=== PATIENT | male | born 1980 | race Hispanic/Latino ===

== ENCOUNTER 2017-06-19 18:19 | Emergency (ER) | payer SELFPAY ==
[~2017-06-19] VITALS: Ht 175.3 cm; Wt 135.2 kg
[~2017-06-19 18:19] MED LIST: GLIPIZIDE ER5 MG PO; METFORMIN HCL500 MG PO
[2017-06-19] MEDS ORDERED: ASPIRIN 81 MG CHEW TAB PO ONE (18:45)
[2017-06-19 18:52] LABS: BASOPHILS # (AUTO) 0.1 (0.0-0.1); BASOPHILS % 0.8 % (0.0-1.0); EOSINOPHILS # (AUTO) 0.3 (0.0-0.4); EOSINOPHILS % 4.2 % (0.0-6.0); HEMATOCRIT 43.4 % (38.2-49.6); LYMPHOCYTES # (AUTO) 2.6 (1.0-3.2); LYMPHOCYTES % 32.7 % (18.0-39.1); MEAN CORPUSCULAR HEMOGLOBIN 29.9 pg (28-32); MEAN CORPUSCULAR HGB CONC 34.6 g/dL (31-35); MEAN CORPUSCULAR VOLUME 86.6 fL (81-99); MONOCYTES # (AUTO) 0.4 (0.2-0.8); MONOCYTES % 5.3 % (4.4-11.3); NEUTROPHILS # (AUTO) 4.5 (2.1-6.9); NEUTROPHILS % 56.5 % (38.7-80.0); PLATELET COUNT 286 x10e3/uL (140-360); RED BLOOD COUNT 5.01 x10e6/uL (4.3-5.7); RED CELL DISTRIBUTION WIDTH 12.5 % (11.7-14.4)
[2017-06-19 18:58] LABS: AMPHETAMINES SCREEN,URINE NEGATIVE (NEGATIVE); BENZODIAZEPINES SCREEN,URINE NEGATIVE (NEGATIVE); BILIRUBIN,URINE NEGATIVE (NEGATIVE); CLARITY,URINE SL CLOUDY (CLEAR); COLOR,URINE YELLOW (YELLOW); KETONES,URINE NEGATIVE (NEGATIVE); LEUKOCYTE ESTERASE ,URINE NEGATIVE (NEGATIVE); NITRITE,URINE NEGATIVE (NEGATIVE); PHENCYCLIDINE SCREEN,URINE NEGATIVE (NEGATIVE); PROTEIN,URINE DIPSTICK NEGATIVE (NEGATIVE); URINE UROBILINOGEN 0.2 mg/dL (0.2 - 1)
[2017-06-19 18:58] LABS: INR 1.02; PROTHROMBIN TIME 12.6 seconds (11.9-14.5)
[2017-06-19 18:59] LABS: PARTIAL THROMBOPLASTIN TIME 29.4 seconds (23.8-35.5)
[2017-06-19 19:10] LABS: ALANINE AMINOTRANSFERASE 44 IU/L (0-55); ALBUMIN 4.5 g/dL (3.5-5.0); ALBUMIN/GLOBULIN RATIO 1.3 (0.8-2.0); ALKALINE PHOSPHATASE 88 IU/L (40-150); ANION GAP 14.9 mmol/L (8-16); BLOOD UREA NITROGEN 16 mg/dL (7-26); BUN/CREATININE RATIO 18 (6-25); CALCIUM 9.6 mg/dL (8.4-10.2); CARBON DIOXIDE 24 mmol/L (22-29); CHLORIDE 102 mmol/L (98-107); CREATINE KINASE 77 IU/L (30-200); CREATININE, SERUM 0.87 mg/dL (0.72-1.25); EST GLOMERULAR FILTRATION RATE > 60 ML/MIN (60-); GLUCOSE 269 mg/dL (74-118); MAGNESIUM 1.9 MG/DL (1.3-2.1); POTASSIUM 3.9 mmol/L (3.5-5.1); SODIUM 137 mmol/L (136-145)
[2017-06-19 19:19] LABS: MUCUS,URINE FEW (RARE); RBC,URINE 0-5 /HPF (0-5); WBC,URINE (MAN) 0-5 /HPF (0-5)
--- NOTE | 2017-06-19 20:36 | Diagnostic Imaging Report ---
EXAMINATION: CHEST SINGLE (NOT PORTABLE) INDICATION: \S\chest pain \S\[id number] \S\2014 COMPARISON: None FINDINGS: AP view TUBES and LINES: None. LUNGS: Lungs are well inflated. Lungs are clear. There is no evidence of pneumonia or pulmonary edema. PLEURA: No pleural effusion or pneumothorax. HEART AND MEDIASTINUM: The cardiomediastinal silhouette is unremarkable.. BONES AND SOFT TISSUES: No acute osseous lesion. Soft tissues are unremarkable. UPPER ABDOMEN: No free air under the diaphragm. IMPRESSION: No acute thoracic abnormality. Signed by: Dr. Catia Lentz M.D. on 06/19/2017 8:32 PM
[2017-06-19 21:22] VITALS: BP 127/75
== END 2017-06-19 21:32 | disposition home or self-care (01) ==
LOC: ER 18:19
DX: R07.89 Other chest pain (principal); E11.65 Type 2 diabetes mellitus with hyperglycemia; I10 Essential (primary) hypertension
CPT/HCPCS: 36415; 71045; 80053; 80307; 81001; 82550; 82553; 83735; 84484; 85025; 85610; 85730; 93005; 99283

== ENCOUNTER 2017-08-15 19:52 | Emergency (ER) | payer SELFPAY ==
[~2017-08-15] VITALS: Ht 175.3 cm; Wt 135.2 kg
--- OUTSIDE RECORDS SUMMARY | 2017-08-15 19:55 | XMS REPORT ---
Author Author [facility] Address Unknown Phone Unavailable Care Team Providers Care Funder Name Role Phone AMBER QUIROZ Unavailable Unavailable Problems This patient has no known problems. Allergies, Adverse Reactions, Alerts This patient has no known allergies or adverse reactions. Medications This patient has no known medications. Results Test Description Test Time Test Comments Text Results Atomic Results Result Comments CHEST SINGLE (NOT PORTABLE) [place] [address] Patient Name: NATAN DEL REAL MR #: [id number] : 1980 Age/Sex: 36/M Req #: [id number] Adm Physician: Ordered by: MAYE PITTS TELEMARKETING SUPERVISOR Report #: [id number] Location: ER Room/Bed: Procedure: [id number] DX/CHEST SINGLE (NOT PORTABLE) Exam Date: 06/19/17 Exam Time: 2014 REPORT STATUS: Signed EXAMINATION : CHEST SINGLE (NOT PORTABLE) INDICATION: COMPARISON: None FINDINGS: AP view TUBES and LINES: None. LUNGS: Lungs are well inflated. Lungs are clear. There is no evidence of pneumonia or pulmonary edema. PLEURA: No pleural effusion or pneumothorax. HEART AND MEDIASTINUM: The cardiomediastinal silhouette is unremarkable.. BONES AND SOFT TISSUES: No acute osseous lesion. Soft tissues are unremarkable. UPPER ABDOMEN: No free air under the diaphragm. IMPRESSION: No acute thoracic abnormality. Signed by: Dr. Kael Lucero M.D. on 06/19/2017 8:32 PM Dictated By: KAEL LUCERO MD 31 Transcribed By: PADMA on 06/19/172031 COPY TO: MAYE PITTS NP
--- OUTSIDE RECORDS SUMMARY | 2017-08-15 19:55 | XMS REPORT | Continuity of Care Document ---
Author Author [facility] Organization [facility] Address [address] [place] [address] Phone Unavailable Care Team Providers Care Estimator Name Role Phone NONSTAFF PCP Unavailable Insurance Providers Guarantor Moises Del Real Address [address] [place] [id number] Email [email or web address] [facility] Policy Number [id number] Subscriber's Name Moises Del Real Relationship 18 Self / Same As Patient Group Number [id number] Group Name [employer] Effective Date 15 Advance Directives Directive Response Recorded Date/Time Does the patient have an advance directive? No 04/20/15 10:47am If yes, is advance directive on file with [facility]? No 04/20/15 10:47am If not on file with [facility] will patient provide a copy? No 06/19/17 6:56pm Do you have a Directive to Physician? No 06/19/17 6:56pm Do you have a Medical Power of Loan Examiner? No 06/19/17 6:56pm Do you have an out of hospital Do Not Resuscitate Order? No 06/19/17 6:56pm Do you have any special needs we should be aware of? No 06/19/17 6:56pm Do you have a support person here with you today? Yes 06/19/17 6:56pm Did patient receive Notice of Privacy Practices? Yes 06/19/17 6:56pm Did patient receive patient rights and responsibilities? Yes 06/19/17 6:56pm Problems No problem information available. Medications Current Home Medications Medication Dose Units Route Directions Days Qty Instructions Start Date Glipizide (Glipizide Er) 5 Mg Tab.er.24 5 Mg Oral Twice A Day Metformin Hcl 500 Mg Tablet 1,000 Mg Oral Twice A Day 60 Tab Social History Smoking Status Start Date Stop Date Former smoker Hospital Discharge Instructions No hospital discharge instruction information available. Plan of Care Discharge Date 06/19/17 9:32pm Disposition HOME, SELF-CARE Condition at Discharge Stable Instructions/Education Provided Angina Chest Pain - Noncardiac Chest Pain - Chest Wall Obesity and Weight Control Forms Provided Work/School Excuse Prescriptions See Medication Section Referrals JEFFY AQUINO MD Order Date: Call for an appointment Address: [address] [place] [id number] Additional Instructions/Education DC Instructions: Follow up with your PCP next business day to schedule your follow-up appointment. Return to the ER for any shortness of breath, chest pain, abdominal pain,increased pain to injured extremity or any new concerns. Functional Status No functional status information available. Allergies, Adverse Reactions, Alerts No known allergies. Immunizations No immunization information available. Vital Signs Acute Vital Signs Vital Response Date/Time Temperature (Fahrenheit) 98.0 degrees F (97.6 - 99.5) 06/19/2017 9:22pm Pulse Pulse Rate (adult) 80 bpm (60 - 90) 06/19/2017 9:22pm Respiratory Rate 18 bpm (12 - 24) 06/19/2017 9:22pm Blood Pressure 127/75 mm Hg 06/19/2017 9:22pm Height 5 ft 9 in 06/19/2017 6:31pm Weight 298 lb 06/19/2017 6:31pm Body Mass Index 44.0 kg/m^2 06/19/2017 6:31pm Results Laboratory Results Test Name Result Units Flags Reference Collection Date/Time Result Date/ Time Comments White Blood Count 7.87 x10e3/uL 4.8-10.8 06/19/2017 6:36pm 06/19/2017 6 :53pm Red Blood Count 5.01 x10e6/uL 4.3-5.7 06/19/2017 6:36pm 06/19/2017 6: 53pm Hemoglobin 15.0 g/dL 14.0-18.0 06/19/2017 6:36pm 06/19/2017 6:53pm Hematocrit 43.4 % 38.2-49.6 06/19/2017 6:36pm 06/19/2017 6:53pm Mean Corpuscular Volume 86.6 fL 81-99 06/19/2017 6:36pm 06/19/2017 6: 53pm Mean Corpuscular Hemoglobin 29.9 pg 28-32 06/19/2017 6:36pm 06/19/2017 6:53pm Mean Corpuscular Hemoglobin Concent 34.6 g/dL 31-35 06/19/2017 6:36pm 06/19/2017 6:53pm Red Cell Distribution Width 12.5 % 11.7-14.4 06/19/2017 6:36pm 2017 6:53pm Platelet Count 286 x10e3/uL 140-360 06/19/2017 6:36pm 06/19/2017 6: 53pm Neutrophils (%) (Auto) 56.5 % 38.7-80.0 06/19/2017 6:36pm 06/19/2017 6: 53pm Lymphocytes (%) (Auto) 32.7 % 18.0-39.1 06/19/2017 6:36pm 06/19/2017 6: 53pm Monocytes (%) (Auto) 5.3 % 4.4-11.3 06/19/2017 6:36pm 06/19/2017 6: 53pm Eosinophils (%) (Auto) 4.2 % 0.0-6.0 06/19/2017 6:36pm 06/19/2017 6: 53pm Basophils (%) (Auto) 0.8 % 0.0-1.0 06/19/2017 6:36pm 06/19/2017 6:53pm IM GRANULOCYTES % 0.5 % 0.0-1.0 06/19/2017 6:36pm 06/19/2017 6:53pm Neutrophils # (Auto) 4.5 2.1-6.9 06/19/2017 6:36pm 06/19/2017 6:53pm Lymphocytes # (Auto) 2.6 1.0-3.2 06/19/2017 6:36pm 06/19/2017 6:53pm Monocytes # (Auto) 0.4 0.2-0.8 06/19/2017 6:36pm 06/19/2017 6:53pm Eosinophils # (Auto) 0.3 0.0-0.4 06/19/2017 6:36pm 06/19/2017 6:53pm Basophils # (Auto) 0.1 0.0-0.1 06/19/2017 6:36pm 06/19/2017 6:53pm Absolute Immature Granulocyte (auto 0.04 x10e3/uL 0-0.1 06/19/2017 6: 36pm 06/19/2017 6:53pm Prothrombin Time 12.6 seconds 11.9-14.5 06/19/2017 6:36pm 06/19/2017 7: 00pm Prothromb Time International Ratio 1.02 06/19/2017 6:36pm 2017 7:00pm Oral Anticoagulant Therapy INR Values: 1. Low Intensity Therapy 1.5 - 2.0 2. Moderate Intensity Therapy 2.0 - 3.0 3. High Intensity Therapy(1) 2.5 - 3.5 4. High Intensity Therapy(2) 3.0 - 4.0 5. Panic Value INR > 5.0 Activated Partial Thromboplast Time 29.4 seconds 23.8-35.5 06/19/2017 6: 36pm 06/19/2017 7:00pm Urine Color YELLOW YELLOW 06/19/2017 6:37pm 06/19/2017 6:58pm Urine Clarity SL CLOUDY H CLEAR 06/19/2017 6:37pm 06/19/2017 6:58pm Urine Specific [place] 1.025 1.010-1.025 06/19/2017 6:37pm 2017 6:58pm Urine pH 5 5 - 7 06/19/2017 6:37pm 06/19/2017 6:58pm Urine Leukocyte Esterase NEGATIVE NEGATIVE 06/19/2017 6:37pm 2017 6:58pm Urine Nitrite NEGATIVE NEGATIVE 06/19/2017 6:37pm 06/19/2017 6:58pm Urine Protein NEGATIVE NEGATIVE 06/19/2017 6:37pm 06/19/2017 6:58pm Urine Glucose (UA) 3+ H NEGATIVE 06/19/2017 6:37pm 06/19/2017 6:58pm Urine Ketones NEGATIVE NEGATIVE 06/19/2017 6:37pm 06/19/2017 6:58pm Urine Opiates Screen NEGATIVE NEGATIVE 06/19/2017 6:37pm 06/19/2017 6 :58pm Urine Barbiturates Screen NEGATIVE NEGATIVE 06/19/2017 6:37pm 2017 6:58pm Urine Phencyclidine Screen NEGATIVE NEGATIVE 06/19/2017 6:37pm 2017 6:58pm Urine Amphetamines Screen NEGATIVE NEGATIVE 06/19/2017 6:37pm 2017 6:58pm Urine Methamphetamines Screen NEGATIVE NEGATIVE 06/19/2017 6:37pm 11/2017 6:58pm Urine Benzodiazepines Screen NEGATIVE NEGATIVE 06/19/2017 6:37pm 11/2017 6:58pm Urine Cocaine Screen NEGATIVE NEGATIVE 06/19/2017 6:37pm 06/19/2017 6 :58pm Urine Cannabinoids Screen NEGATIVE NEGATIVE 06/19/2017 6:37pm 2017 6:58pm THESE RESULTS ARE FOR MEDICAL TREATMENT ONLY *THIS REPORT CONTAINS UNCONFIRMED SCREENING RESULTS* POSITIVE RESULTS WILL BE CONFIRMED BY REFERENCE LAB UPON REQUEST CUT-OFF DRUG CLASS CONCENTRATION ng/mL Amphetamines 1000 Methamphetamines 1000 Cocaine 300 Opiate 300 Phencyclidine 25 Cannabinoid 50 Barbiturates 300 Benzodiazepine 300 Methadone 300 Urine Methadone Screen NEGATIVE NEGATIVE 06/19/2017 6:37pm 2017 6:58pm THESE RESULTS ARE FOR MEDICAL TREATMENT ONLY *THIS REPORT CONTAINS UNCONFIRMED SCREENING RESULTS* POSITIVE RESULTS WILL BE CONFIRMED BY REFERENCE LAB UPON REQUEST CUT-OFF DRUG CLASS CONCENTRATION ng/mL Amphetamines 1000 Methamphetamines 1000 Cocaine Metabolite 300 Opiate 300 Phencyclidine 25 Cannabinoid 50 Barbiturates 300 Benzodiazepine 300 Methadone 300 Urine Urobilinogen 0.2 mg/dL 0.2 - 1 06/19/2017 6:37pm 06/19/2017 6: 58pm Urine Bilirubin NEGATIVE NEGATIVE 06/19/2017 6:37pm 06/19/2017 6: 58pm Urine Blood NEGATIVE NEGATIVE 06/19/2017 6:37pm 06/19/2017 6:58pm Urine WBC 0-5 /HPF 0-5 06/19/2017 6:37pm 06/19/2017 7:19pm Urine RBC 0-5 /HPF 0-5 06/19/2017 6:37pm 06/19/2017 7:19pm Urine Bacteria NONE /HPF NONE 06/19/2017 6:37pm 06/19/2017 7:19pm Urine Epithelial Cells NONE /LPF NONE 06/19/2017 6:37pm 06/19/2017 7: 19pm Urine Mucus FEW H RARE 06/19/2017 6:37pm 06/19/2017 7:19pm Sodium Level 137 mmol/L 136-145 06/19/2017 6:36pm 06/19/2017 7:10pm Potassium Level 3.9 mmol/L 3.5-5.1 06/19/2017 6:36pm 06/19/2017 7:10pm Chloride Level 102 mmol/L 98-107 06/19/2017 6:36pm 06/19/2017 7:10pm Carbon Dioxide Level 24 mmol/L 22-29 06/19/2017 6:36pm 06/19/2017 7: 10pm Anion Gap 14.9 mmol/L 8-16 06/19/2017 6:36pm 06/19/2017 7:10pm Blood Urea Nitrogen 16 mg/dL 7-26 06/19/2017 6:36pm 06/19/2017 7:10pm Creatinine 0.87 mg/dL 0.72-1.25 06/19/2017 6:36pm 06/19/2017 7:10pm BUN/Creatinine Ratio 18 6-25 06/19/2017 6:36pm 06/19/2017 7:10pm Estimat Glomerular Filtration Rate > 60 ML/MIN 60- 06/19/2017 6:36pm 7:10pm Ranges were taken from the National Kidney Disease Education Program and the National Kid[employer] Foundation literature. Reference ranges: 60 or greater: Normal 16-59 (for 3 consecutive months): Chronic kidney disease 15 or less: Kidney failure Glucose Level 269 mg/dL H 74-118 06/19/2017 6:36pm 06/19/2017 7:10pm Calcium Level 9.6 mg/dL 8.4-10.2 06/19/2017 6:36pm 06/19/2017 7:10pm Magnesium Level 1.9 MG/DL 1.3-2.1 06/19/2017 6:36pm 06/19/2017 7:10pm Total Bilirubin 0.7 mg/dL 0.2-1.2 06/19/2017 6:36pm 06/19/2017 7:10pm Aspartate Amino Transf (AST/SGOT) 18 IU/L 5-34 06/19/2017 6:36pm 2017 7:10pm Alanine Aminotransferase (ALT/SGPT) 44 IU/L 0-55 06/19/2017 6:36pm 11/2017 7:10pm Total Protein 7.9 g/dL 6.5-8.1 06/19/2017 6:36pm 06/19/2017 7:10pm Albumin 4.5 g/dL 3.5-5.0 06/19/2017 6:36pm 06/19/2017 7:10pm Globulin 3.4 g/dL 2.3-3.5 06/19/2017 6:36pm 06/19/2017 7:10pm Albumin/Globulin Ratio 1.3 0.8-2.0 06/19/2017 6:36pm 06/19/2017 7: 10pm Alkaline Phosphatase 88 IU/L 40-150 06/19/2017 6:36pm 06/19/2017 7: 10pm Creatine Kinase 77 IU/L 30-200 06/19/2017 6:36pm 06/19/2017 7:10pm Creatine Kinase MB 0.60 ng/mL 0-5.0 06/19/2017 6:36pm 06/19/2017 7: 18pm Troponin I < 0.001 ng/mL 0-0.300 06/19/2017 6:36pm 06/19/2017 7:18pm Procedures Procedure Status Date Provider(s) X-ray of chest, single view Active 06/19/17 MAYE PITTS HOSPITAL[facility] AMBASSADOR Encounters Encounter Location Arrival/Admit Date Discharge/Depart Date Attending Provider Departed Emergency Room [facility] 06/19/17 6:19pm 9:32pm AMBER QUIROZ MD
[2017-08-15] MEDS ORDERED: ASPIRIN 81 MG CHEW TAB PO ONE (20:30)
--- NOTE | 2017-08-15 20:46 | Diagnostic Imaging Report ---
EXAM: XR CHEST 2 VIEWS DATE: 08/15/2017 8:13 PM INDICATION: Chest pain COMPARISON: 06/19/2017 FINDINGS: Lines and Tubes: None Heart and Mediastinum: No acute findings. Lungs and Pleura: Minimal opacities in the lung bases statistically represent atelectasis, however, infectious process could have a similar appearance. Bones and Soft Tissues: No acute findings. IMPRESSION: 1. No acute cardiopulmonary findings. Signed by: Dr. Festus Schwartz MD on 08/15/2017 8:43 PM
[2017-08-15 22:39] LABS: BASOPHILS # (AUTO) 0.1 (0.0-0.1); BASOPHILS % 0.5 % (0.0-1.0); EOSINOPHILS # (AUTO) 0.5 (0.0-0.4); EOSINOPHILS % 5.7 % (0.0-6.0); HEMATOCRIT 43.7 % (38.2-49.6); LYMPHOCYTES # (AUTO) 2.4 (1.0-3.2); LYMPHOCYTES % 25.6 % (18.0-39.1); MEAN CORPUSCULAR HGB CONC 34.3 g/dL (31-35); MEAN CORPUSCULAR VOLUME 87.4 fL (81-99); MONOCYTES # (AUTO) 0.6 (0.2-0.8); MONOCYTES % 5.9 % (4.4-11.3); NEUTROPHILS # (AUTO) 5.8 (2.1-6.9); NEUTROPHILS % 61.4 % (38.7-80.0); PLATELET COUNT 267 x10e3/uL (140-360); RED CELL DISTRIBUTION WIDTH 12.7 % (11.7-14.4)
[2017-08-15 22:51] LABS: INR 0.93; PARTIAL THROMBOPLASTIN TIME 30.1 seconds (23.8-35.5); PROTHROMBIN TIME 11.7 seconds (11.9-14.5)
[2017-08-15 22:59] LABS: ALANINE AMINOTRANSFERASE 55 IU/L (0-55); ALBUMIN/GLOBULIN RATIO 1.1 (0.8-2.0); ALKALINE PHOSPHATASE 96 IU/L (40-150); ANION GAP 15.2 mmol/L (8-16); BLOOD UREA NITROGEN 18 mg/dL (7-26); BUN/CREATININE RATIO 18 (6-25); CALCIUM 10.1 mg/dL (8.4-10.2); CARBON DIOXIDE 23 mmol/L (22-29); CHLORIDE 104 mmol/L (98-107); CREATINE KINASE 95 IU/L (30-200); CREATININE, SERUM 1.01 mg/dL (0.72-1.25); EST GLOMERULAR FILTRATION RATE > 60 ML/MIN (60-); GLUCOSE 341 mg/dL (74-118); MAGNESIUM 1.9 MG/DL (1.3-2.1); POTASSIUM 4.2 mmol/L (3.5-5.1); SODIUM 138 mmol/L (136-145)
[2017-08-15] MEDS ORDERED: SODIUM CHLORIDE 0.9% 1000ML 1,000 ML IV STA (23:05)
[2017-08-15 23:08] LABS: AMPHETAMINES SCREEN,URINE NEGATIVE (NEGATIVE); BENZODIAZEPINES SCREEN,URINE NEGATIVE (NEGATIVE); PHENCYCLIDINE SCREEN,URINE NEGATIVE (NEGATIVE)
[2017-08-15 23:10] LABS: BILIRUBIN,URINE NEGATIVE (NEGATIVE); CLARITY,URINE CLEAR (CLEAR); COLOR,URINE YELLOW (YELLOW); LEUKOCYTE ESTERASE ,URINE NEGATIVE (NEGATIVE); NITRITE,URINE NEGATIVE (NEGATIVE); PROTEIN,URINE DIPSTICK NEGATIVE (NEGATIVE); URINE UROBILINOGEN 0.2 mg/dL (0.2 - 1)
[2017-08-15 23:11] LABS: KETONES,URINE TRACE (NEGATIVE)
[2017-08-15 23:19] LABS: THYROID STIMULATING HORMONE 1.024 uIU/mL (0.350-4.940)
[2017-08-15 23:19] LABS: EPITHELIAL CELLS,URINE FEW /LPF; RBC,URINE 0-5 /HPF (0-5); WBC,URINE (MAN) 0-5 /HPF (0-5)
[2017-08-16 00:45] VITALS: BP 132/65
== END 2017-08-16 01:19 | disposition home or self-care (01) ==
LOC: ER 19:52
DX: R07.89 Other chest pain (principal)
CPT/HCPCS: 36415; 71046; 80053; 80307; 81001; 82550; 82553; 83735; 84443; 84484; 85025; 85379; 85610; 85730; 93005; 99284; J7030

== ENCOUNTER 2023-11-17 21:18 | Emergency (ER) | payer SELFPAY ==
[~2023-11-17] VITALS: Ht 180.3 cm; Wt 97.1 kg
[2023-11-17 21:25] VITALS: TEMP 100.8
[2023-11-17] MEDS ORDERED: IOPAMIDOL 370 MG/ML 100 ML INFUS..BTL INJ ONE (21:54)
[2023-11-17 22:11] LABS: BASOPHILS % 0.4 % (0.0-1.0); EOSINOPHILS % 0.4 % (0.0-6.0); HEMOGLOBIN 13.4 g/dL (14.0-18.0); LYMPHOCYTES # (AUTO) 1.4 (1.0-3.2); LYMPHOCYTES % 13.4 % (18.0-39.1); MEAN CORPUSCULAR HEMOGLOBIN 30.1 pg (28-32); MEAN CORPUSCULAR HGB CONC 34.4 g/dL (31-35); MEAN CORPUSCULAR VOLUME 87.6 fL (81-99); MONOCYTES % 9.8 % (4.4-11.3); NEUTROPHILS # (AUTO) 7.7 (2.1-6.9); NEUTROPHILS % 75.4 % (38.7-80.0); PLATELET COUNT 305 x10e3/uL (140-360); RED BLOOD COUNT 4.45 x10e6/uL (4.3-5.7); RED CELL DISTRIBUTION WIDTH 11.8 % (11.7-14.4); WHITE BLOOD COUNT 10.21 x10e3/uL (4.8-10.8)
[2023-11-17] MEDS: SODIUM CHLORIDE 0.9% 1000ML 1,000 ML IV STA ×2 (22:13)
[2023-11-17] MEDS: IBUPROFEN 600 MG TAB PO STA (22:14)
[2023-11-17 22:15] LABS: ALBUMIN 3.7 g/dL (3.5-5.0); ALBUMIN/GLOBULIN RATIO 0.9 (0.8-2.0); ANION GAP 15.6 mmol/L (8-16); BILIRUBIN,TOTAL 1.3 mg/dL (0.2-1.2); CALCIUM 9.5 mg/dL (8.4-10.2); CREATININE, SERUM 1.06 mg/dL (0.72-1.25); POTASSIUM 3.6 mmol/L (3.5-5.1); TOTAL PROTEIN 7.6 g/dL (6.5-8.1)
[2023-11-17 22:38] LABS: BILIRUBIN,URINE NEGATIVE (NEGATIVE); CLARITY,URINE CLEAR (CLEAR); COLOR,URINE YELLOW (YELLOW); GLUCOSE, URINE >=1000 (NEGATIVE); KETONES,URINE NEGATIVE (NEGATIVE); LEUKOCYTE ESTERASE ,URINE NEGATIVE (NEGATIVE); NITRITE,URINE NEGATIVE (NEGATIVE); PH,URINE 6 (5 - 7); PROTEIN,URINE DIPSTICK TRACE (NEGATIVE)
[2023-11-17 22:57] LABS: BACTERIA,URINE FEW /HPF; EPITHELIAL CELLS,URINE FEW /LPF
[2023-11-17 23:00] VITALS: PULSE 76; RESP 24
[2023-11-17] MEDS ORDERED: AMOX TR-K CLV1 EAC2 PO (23:51)
[2023-11-18 00:18] VITALS: BP 123/75; PULSE 72; RESP 22; TEMP 98.7; O2SAT 97
== END 2023-11-18 00:18 | disposition home or self-care (01) ==
LOC: ER 21:32
DX: R50.9 Fever, unspecified (principal); J18.9 Pneumonia, unspecified organism; E11.65 Type 2 diabetes mellitus with hyperglycemia; R16.1 Splenomegaly, not elsewhere classified; F41.9 Anxiety disorder, unspecified; Z11.52 Encounter for screening for COVID-19
CPT/HCPCS: 36415; 71250; 74177; 80053; 81001; 82948; 83605; 85025; 87040; 99284; J2543; J7030; Q9967; U0002

== ENCOUNTER 2024-10-31 22:24 | Emergency (ER) | payer SELFPAY ==
[~2024-10-31] VITALS: Ht 180.3 cm; Wt 97.5 kg
[~2024-10-31 22:24] MED LIST changes: +AMOX TR-K CLV1 EAC2 PO
[2024-10-31 23:31] LABS: BASOPHILS % 0.4 % (0.0-1.0); EOSINOPHILS % 0.1 % (0.0-6.0); LYMPHOCYTES % 8.8 % (18.0-39.1); MONOCYTES % 9.9 % (4.4-11.3); NEUTROPHILS % 80.4 % (38.7-80.0); RED CELL DISTRIBUTION WIDTH 12.4 % (11.7-14.4)
[2024-10-31] MEDS: ACETAMINOPHEN 325 MG TAB PO ONE (23:40)
[2024-10-31] MEDS: ONDANSETRON HCL INJ 2MG/ML 2ML 2 MG/ML VIAL IV STA (23:42)
[2024-10-31] MEDS: KETOROLAC TROMETHAMINE 30 MG/ML VIAL IV STA (23:42)
[2024-10-31] MEDS: SODIUM CHLORIDE 0.9% 1000ML 1,000 ML IV ONE (23:50)
[2024-10-31 23:52] LABS: EST GLOMERULAR FILTRATION RATE 78.0 ML/MIN (>=60)
[2024-10-31 23:57] LABS: CORONAVIRUS COVID-19 AG NEGATIVE (NEGATIVE)
[2024-11-01] MEDS: LACTATED RINGER'S 1,000 ML INJ ONE ×2 (00:32→01:13)
[2024-11-01 01:26] LABS: LEUKOCYTE ESTERASE ,URINE NEGATIVE (NEGATIVE); PROTEIN,URINE DIPSTICK >=300 (NEGATIVE)
[2024-11-01 01:28] LABS: URINE UROBILINOGEN 0.2 mg/dL (0.2 - 1)
[2024-11-01 01:36] LABS: EPITHELIAL CELLS,URINE MODERATE /LPF
[2024-11-01] MEDS ORDERED: CEFDINIR300 MG PO (02:16)
[2024-11-01 02:30] VITALS: PULSE 78; RESP 16; TEMP 98.6
[2024-11-01 02:52] VITALS: BP 103/63; PULSE 78; RESP 16; TEMP 98.6; O2SAT 98
== END 2024-11-01 02:48 | disposition home or self-care (01) ==
LOC: ER 22:57
DX: R50.9 Fever, unspecified (principal); N39.0 Urinary tract infection, site not specified; E11.65 Type 2 diabetes mellitus with hyperglycemia; F41.9 Anxiety disorder, unspecified; Z11.52 Encounter for screening for COVID-19
CPT/HCPCS: 36415; 80053; 81001; 85025; 87086; 87428; 99284; J0696; J1885; J2405; J2470; J7121 ×2